=== PATIENT | female | born 1930 | race Caucasian/White ===

== ENCOUNTER 2019-06-07 21:20 | Emergency (ER) | payer MEDICARE, OTHER ==
[~2019-06-07] VITALS: Ht 167.6 cm; Wt 72.3 kg
[2019-06-07 21:22] VITALS: BP 187/116
--- NOTE | 2019-06-07 21:50 | NUR ---
pt to room from lobby
[2019-06-07 22:24] LABS: MICROSCOPIC AUTO
[2019-06-07 22:30] LABS: CULTURE INDICATED? YES
== END 2019-06-07 22:45 | disposition home or self-care (01) ==
LOC: ED 22:30
DX: R33.9 Retention of urine, unspecified (principal); N39.0 Urinary tract infection, site not specified; Z85.51 Personal history of malignant neoplasm of bladder
CPT/HCPCS: 81001; 87086; 87186; 99283